=== PATIENT | female | born 1950 | race Caucasian/White ===

== ENCOUNTER 2020-01-13 20:47 | Inpatient (IN) | payer OTHER ==
[~2020-01-13] VITALS: Ht 157.5 cm; Wt 42.6 kg
--- NOTE | 2020-01-13 21:13 | NUR ---
RECEIVED REPORT FROM NATANAEL RAMACHANDRAN AT [facility] REGARDING THIS EVENING'S EVENTS. PER RN, AROUND 1715 THEY RESPONDED TO A CALL FOR A FALL OFF THE TOILET IN PT CELL. PT REPORTS THAT SHE HAS NOT HAD A BOWEL MOVEMENT X7 DAYS AND WAS STRAINING HARD ON THE TOILET. PT THEN HAD A NEAR-SYNCOPAL EVENT WHERE SHE FELL OFF THE TOILET WITH NO TRAUMA NOTED. PT ALSO HAD X5 EPISODES OF PROJECTILE VOMITING. PT WAS ADMINISTERED 4MG ZOFRAN IM AND AN IV WAS ESTABLISHED AND A LITER OF NS WAS BOLUSED. PT O2 SAT WAS 95% ON 2L O2 VIA NC AT THE TIME, NATANAEL RAMACHANDRAN THEN REPORTS THAT THE PATIENT DESATTED DOWN TO 75% AFTER TRYING TO WEAN THE PT OFF THE O2. PT WAS PLACED ON HIGH FLOW AND CALLED 911. PT WAS ABLE TO PASS A SMALL AMOUNT OF STOOL THIS EVENING PER RN. PT ONLY MEDICAL HISTORY IS ANXIETY AND ASTHMA.
[2020-01-13 22:21] VITALS: Ht 157.5 cm; Wt 42.6 kg
--- NOTE | 2020-01-13 22:29 | NUR ---
PATIENT BROUGHT IN TO ED ROOM T2A FROM [facility] FOR C/O NEAR SYNCOPAL EPISODE OCCURRING AT 5 PM WHILE PATIENT WAS HAVING A BM. PATIENT WAS EXPERIENCING DIFFICULTY BREATHING AND VOMITING X1 WHEN [facility] ARRIVED ON SCENE. PATIENT HAD INDICATED THAT SHE WAS ALERT AND ORIENTED X4. RESPIRATION EVEN AND UNLABORED. PATIENT DENIED PAIN, DISCOMFORT, AND DIZZINESS. PATIENT HAS PMH ASTHMA, ANXIETY, SCHIZOPHRENIA, AND BIPOLAR DISORDER. REPORT RECEIVED FROM [facility] REPAIR SERVICER. AT BEDSIDE TO [facility] PATIENT AND EKG OBTAINED BY WOOD POLISHER AT THE TIME. WILL CONTINUE TO MONITOR. CALL LIGHT WITHIN REACH.
[2020-01-13 22:50] LABS: BASOPHIL % 0.3 % (0-2); PLATELET COUNT 286 x10^3mcL (130-400); RED CELL DISTRIBUTION WIDTH 12.9 % (11.5-14.5)
[2020-01-13 23:05] LABS: ALBUMIN 3.4 g/dL (3.4-5.0); ALKALINE PHOSPHATASE 62 U/L (46-116); ALT/SGPT 27 U/L (14-59); AST/SGOT 36 U/L (15-37); CALCIUM 8.4 mg/dL (8.5-10.1); CARBON DIOXIDE 19.8 mmol/L (21-32); CHLORIDE SERUM 87 mmol/L (98-107); CREATININE SERUM 0.7 mg/dL (0.6-1.0); GFR1 > 60 mL/min; GLUCOSE SERUM 119 mg/dL (74-106); POTASSIUM SERUM 3.9 mmol/L (3.5-5.1)
[2020-01-13 23:06] LABS: TOTAL PROTEIN, SERUM 6.1 g/dL (6.4-8.2)
[2020-01-13 23:07] LABS: SODIUM SERUM 119 mmol/L (136-145)
[2020-01-14 01:44] LABS: microscopic required? YES; urine erythrocyte TRACE (NEGATIVE)
[2020-01-14] MEDS ORDERED: NATURE'S BLEND500 MG PO (01:55)
[2020-01-14] MEDS ORDERED: ASMANEX TW110 MCG/Ac IH (01:55)
[2020-01-14] MEDS ORDERED: RISPERDAL1 M1 PO (01:56)
[2020-01-14] MEDS ORDERED: DITROPAN XL5 MG PO (01:56)
[2020-01-14] MEDS ORDERED: XOPENEX3 ML NEB (01:57)
--- NOTE | 2020-01-14 01:58 | NUR ---
PATIENT RESTING AT THE MOMENT. PATIENT VOIDS 3 TIMES. CLEAR, YELLOW URINE NOTED. TOTAL AMOUNT IS 400 ML.
--- NOTE | 2020-01-14 02:28 | NUR ---
REPORT GIVEN TO MADIE HURST FOR PATIENT BEING ADMITTED TO ROOM 236B VIA EXTENSION 2632. PATIENT MADE AWARE. W DEPUTIES MADE AWARE.
[2020-01-14 05:37] VITALS: BP 133/57
[2020-01-14 06:10] VITALS: BP 115/57
--- NOTE | 2020-01-14 07:15 | NUR ---
RECEIVED BEDSIDE REPORT FROM NIGHT RN. PT IN BED RESTING. NO ACUTE DISTRESS. PT AOX4 ABLE TO MAKE NEEDS KNOWN. RR EVEN AND UNLABORED ON 2L NC. O2 SAT 94%. PT ON TELE#2. CIM WITH GUARDS AT BEDSIDE. IV IN RAC CDI WITH NO REDNESS OR SWELLING. CALL LIGHT WITHIN REACH. WILL CONTINUE TO MONITOR.
[2020-01-14 14:11] VITALS: BP 116/52
[2020-01-14 16:30] VITALS: BP 107/60
[2020-01-14 19:02] LABS: CALCIUM 9.2 mg/dL (8.5-10.1); CARBON DIOXIDE 24.4 mmol/L (21-32); CHLORIDE SERUM 100 mmol/L (98-107); CREATININE SERUM 0.8 mg/dL (0.6-1.0); GFR1 > 60 mL/min; GLUCOSE SERUM 101 mg/dL (74-106); POTASSIUM SERUM 4.3 mmol/L (3.5-5.1); SODIUM SERUM 134 mmol/L (136-145)
[2020-01-14 19:30] VITALS: BP 118/59
--- NOTE | 2020-01-14 19:41 | NUR ---
PT IN BED RESTING. NO ACUTE DISTRESS. PT ON 1L NC. RR EVEN AND UNLABORED. ALL NEEDS MEET AT THIS TIME. WILL CONTINUE TO MONITOR.
--- NOTE | 2020-01-14 22:13 | NUR ---
RECEICED PT IN BED AAOX4 ON 2L N/C NO RESP DISTRESS NOTED , PIV INFILTRATED 22B INSERTED TO LEFT F.ARM . PT TOLERATED WELL .
--- NOTE | 2020-01-15 02:16 | NUR ---
ASSISTED PT TO THE BSC WITH FWW, GAIT STEADY , PT VOIDED WELL . PIV INTACT INFUSING WELL . TELE NSR .
[2020-01-15 04:58] VITALS: BP 110/46
--- NOTE | 2020-01-15 06:30 | NUR ---
NO CHANGES OF CONDITION NOTED , ALL DUE MEDS GIVEN NO REACTION NOTED, PIV INTACT INFUSING WELL , TELE NSR.
--- NOTE | 2020-01-15 07:05 | NUR ---
RECEIVED BEDSIDE REPORT FROM NIGHT RN. PT ASLEEP IN BED WITH EYES CLOSED. NO ACUTE DISTRESS. RR EVEN AND UNLABORED ON 1L NC. HOB BED ELVATED. PT CIW WITH GUARD AT ROOM SIDE. CALL LIGHT WITHIN REACH. BED LOCKED IN LOWEST POSITION. WILL CONTINUE TO MONITOR.
[2020-01-15 07:29] LABS: BASOPHIL % 0.4 % (0-2); PLATELET COUNT 279 x10^3mcL (130-400); RED CELL DISTRIBUTION WIDTH 13.7 % (11.5-14.5)
[2020-01-15 08:07] LABS: ALKALINE PHOSPHATASE 56 U/L (46-116); ALT/SGPT 27 U/L (14-59); AST/SGOT 25 U/L (15-37); BILIRUBIN TOTAL 0.26 mg/dL (0.20-1.00); CALCIUM 8.6 mg/dL (8.5-10.1); CARBON DIOXIDE 24.6 mmol/L (21-32); CHLORIDE SERUM 106 mmol/L (98-107); CREATININE SERUM 0.8 mg/dL (0.6-1.0); GFR1 > 60 mL/min; GLUCOSE SERUM 90 mg/dL (74-106); MAGNESIUM 2.3 mg/dL (1.8-2.4); PHOSPHOROUS 2.6 mg/dL (2.5-4.9); POTASSIUM SERUM 4.1 mmol/L (3.5-5.1); SODIUM SERUM 139 mmol/L (136-145); T4(THYROXINE) 5.4 ug/dL (4.7-13.3)
[2020-01-15 08:13] LABS: ALBUMIN 2.9 g/dL (3.4-5.0)
[2020-01-15 08:33] LABS: ERYTHROCYTE SED RATE 15 mm/hr (0-30)
[2020-01-15 09:32] VITALS: BP 129/62
[2020-01-15 12:01] VITALS: BP 130/59
--- NOTE | 2020-01-15 15:44 | NUR ---
COVID TEST PREFORMED FOR PLACEMENT BACK TO W
[2020-01-15 17:00] VITALS: BP 114/57
--- NOTE | 2020-01-15 19:10 | NUR ---
RECEIVED REPORT FROM ALVARO RAMACHANDRAN. PT IS AAOX4 AND DENIES CLARK/DIZZINESS. PT ON TELE #13, NSR WITH HR 67. PT DENIES CP/PRESSURE. PT PULSES PALPABLE AND CAP REFILL <3 SEC. PT LUNG SOUNDS DIMINISHED ON RA. PT DENIES SOB OR RESP DISTRESS. PT ABD SOFT/NONDISTENDED WITH ACTIVE BS X4. PT DENIES N/V/C/D. PT VOIDS FREELY WITH BSC. PT HAS GENERALIZED WEAKNESS, BUT IS AMBULATORY. PT HAS REDNESS NOTED TO BUTTOCKS AREA. PT DENIES ANY S/S OF PAIN OR DISCOMFORT AT THIS TIME. PT IV PATENT/INTACT. ALL NEEDS MET. CALL LIGHT WITHIN REACH. BED IN LOWEST POSITION. SIDE RAILS X2 UP. GUARDS AT BEDSIDE. WILL CONTINUE TO MONITOR.
--- NOTE | 2020-01-15 19:17 | NUR ---
PT SITTING UP IN BED. NO ACUTE DISTRESS. RR EVEN AND UNLABORED ON RA. NO CO PAIN AT THIS TIME. BSC AT BEDSIDE. GUARD AT DOOR. ALL NEEDS MEET AT THIS TIME. ENDORSED CARE TO NIGHT RN.
[2020-01-15 20:40] VITALS: BP 150/62
--- NOTE | 2020-01-16 01:00 | NUR ---
PT RESTING COMFORTABLY IN BED WITH EYES CLOSED, EASILY AROUABLE. NO ACUTE DISTRESS NOTED. ALL NEEDS MET. GUARDS AT BEDSIDE. WILL CONTINUE TO MONITOR.
[2020-01-16 04:06] LABS: RAPID PLASMA REAGIN Non Reactive (Non Reactive)
[2020-01-16 05:24] VITALS: BP 143/65
--- NOTE | 2020-01-16 05:31 | NUR ---
PT RESTED COMFORTABLY WITH EYES CLOSED, EASILY AROUSABLE. NO ACUTE DISTRESS NOTED DURING THE NIGHT. PT BREATHING E/U ON RA. ALL NEEDS MET. CALL LIGHT WITHIN REACH. BED IN LOWEST POSITION. SIDE RAILS X2 UP. GUARDS AT BEDSIDE. WILL ENDORSE TO DAY SHIFT NURSE.
[2020-01-16 07:30] LABS: BASOPHIL % 0.5 % (0-2); PLATELET COUNT 301 x10^3mcL (130-400); RED CELL DISTRIBUTION WIDTH 13.8 % (11.5-14.5)
--- NOTE | 2020-01-16 07:46 | NUR ---
RECIEVED REPORT FROM [facility] NURSE. PATIENT IS CURRENTLY AWAKE ALERT AND ORIENTED X 4. PATIENT IS ON STANDAARD PRECAUTIONS. IV TO THE LEFT FOREARM CURRENTLY SALINE LOCKED. PATIENT RECIEVES ANITBIOTICS THERAPY. BESIDE COMMODE IN ROOM. LING SOUNDS DIMINISHED ON ROOM AIR, OXYGEN SATURATION AT 96%. NO REPORT OF DIZZINESS AT THIS TIME. NO REPORT OF PAIN AT THIS TIME. SODIUM LEVEL WNL. WILL CONTINUE TO PROVIDE CARE FOR PATIENT.
[2020-01-16 08:33] VITALS: BP 144/65
[2020-01-16 09:05] LABS: RHEUMATOID ARTHRITIS FACTOR <10.0 IU/mL (0.0-13.9)
[2020-01-16 13:00] VITALS: BP 134/53
--- NOTE | 2020-01-16 15:34 | NUR ---
1. Continue regular diet as tolerate
--- NOTE | 2020-01-16 15:34 | NUR ---
Initial Nutrition Assessment: 236B ELY WAITE 69F HR Nursing trigger: N/V/D > 3d, unintentional weight loss > 10lbs Dx: Syncope, hyponatremia, SOB, sepsis PMHx: Bipolar, schizophrenia PSHx: none noted Labs: (01/15) WBC 12.3H Meds: Levaquin PRN meds: Ambien, Ativan, morphine sulfate, norco, Phenergan, Tylenol, Ventolin Diet: Regular PO intake since admission: 50-85% x 4 meals with average PO intake of 74% Ht: 157.48cm/62in Wt: 42.638kg/93.8lbs BMI: 17.2 Bed scale: 45.5kg/101.1lbs IBW: 50kg/110lbs %IBW: 85.3% UBW: 95lbs per pt Age: 69 Food Allergies: NFKA per pt Edema: no edema noted Last BM: 01/13 Skin: redness noted to buttocks area Troy: 18 Per H and P (01/13), Pt is a 69 yo female h/o psych d/o schizophrenia being worked up for parkinson, [facility] resident. She c/o increased sob and had a fainting spill while using toilet. She was found next to the toilet. She than was taken to the ed. Multiple work ups done, she also had leukocytosis, hyponatremia and was admitted for further treatments. Pt was admitted with dx: Syncope, Hyponatremia, Schizophrenia, other psych d/o, leukocytosis, r/o sepsis, SOB/RAD RD Note (01/15) Pt was seen lying in bed during bedside visit. Pt was accompanied by two officers per [facility] policy. Pt denied chewing/swallowing difficulty, and recent weight changes. However, pt reported her weight was 95lbs last time she checked. Per pt, she had good appetite, and RN also reported that pt had 100% of her breakfast today. Problem with: N/V/D/C: constipation, pt last BM 01/13 noted Problems with: Chewing: Swallowing: none noted Current appetite: good Recent wt change: pt did not remember %wt change: 1% per usual weight provided by pt Height: 5'2" Vitamin/Supplement use: n/a Special diet at home: n/a Physical activity: none per pt Nutrition education given (specify specific nutrition education and handout given): not given at this time Food-drug interactions? Education given? n/a Estimated Nutritional Needs Based on current body weight (43kg) Energy: 9779-8601 kcal/day (30-35 kcal/kg for underweight) Protein: 51-64 g/day (1.2-1.5 g/kg for underweight and lean body mass preservation) Fluid: 2076-3825 mL/day (1 mL/kcal) Nutrition Diagnosis: 1. Underweight r/t pathophysiological cause a/e/b pt BMI =17.2. Intervention 1. Continue regular diet as tolerate Monitor/Evaluate Goal: PO intake at least 75% of estimated needs Monitor: PO intake, Labs, GI function, Body weight F/U in 3-5 days as moderate risk
--- NOTE | 2020-01-16 17:24 | NUR ---
PATIENT IS CURRENTLY AWAKE ALERT AND ORIENTED X 4. PATIENT CURRENTLY ON STANDARD PRECAUTIONS. NO EPISODES OF SYNCOPE THROUGHOUT SHIFT. URINE CULTURE RESULTS RECIEVED TODAY AND REVEALED E. COLI, NOTIFIED DR. SMITH- PER DR. SMITH CONTINUE WITH CURRENT THERAPY WHICH IS IV ANITBIOTIC LEVAQUIN. CURRENTLY PENDING NOVEL BLANCO VIRUS TEST RESULTS. SAFETY PRECAUTIONS IN PLACE. CALL LIGHT WITHIN REACH. WILL ENDORSE ALL FURTHER CARE TO NOC NURSE.
--- NOTE | 2020-01-16 19:45 | NUR ---
RECEIVED PT FROM AM NURSE, PT AWAKE AND ALERT IN BED AT THIS TIME. AA/O X 4 , ABLE TO MAKE NEEDS KNOWN, CLEAR SPEECH, NO FACIAL DROOP, DENIES HEADACHE/ DIZZINESS. MED SURG PT. DENIES CHEST PAIN/ CHEST PRESSURE, PULSES PALPABLE, NO EDEMA, LUNG SOUNDS DIMINISHED BLL, PT ON ROOM AIR, RESPIRATIONS E/U, DENIES SOB. ACTIVE BS X 4 QUADS/ ABD SOFT AND NON DISTENDED, DENIES N/V/D. DENIES PAIN, ERYTHEMA TO BUTTOCKS. IV TO LFA INTACT, FLUSHES WELL, SL, NO ERYTHEMA, NO INFILTRATION. CIW PT, GUARD OUTSIDE DOOR AT TALL TIME, SHACKLE TO LEFT ANKLE INTACT, CIRCULATION WNL/ SKIN INTACT. ALL NEEDS ADDRESS. CALL BUTTON WITHIN REACH, WILL CONTINUE TO MONITOR.
[2020-01-16 20:19] VITALS: BP 125/84
--- NOTE | 2020-01-17 00:15 | NUR ---
PT IN BED RESTING WITH EYES CLOSED, NO SIGNS OR SYMPTOMS OF PAIN OR DISCOMFORT. RESPIRATIONS EVEN AND UNLABORED, NO RESPIRATORY DISTRESS AT THIS TIME. NO ACUTE DISTRESS AT THIS TIME. CIW PT, GUARD OUTSIDE DOOR AT ALL TIMES. ANKLE SHACKLE IN PLACE, SKIN INTACT, CIRCULATION WNL. CALL BUTTON WITHIN REACH, WILL CONTINUE TO MONITOR.
[2020-01-17 06:23] VITALS: BP 134/68
[2020-01-17 06:53] LABS: BASOPHIL % 0.5 % (0-2); PLATELET COUNT 313 x10^3mcL (130-400); RED CELL DISTRIBUTION WIDTH 13.6 % (11.5-14.5)
--- NOTE | 2020-01-17 07:15 | NUR ---
RECEIVED PT IN BED AWAKE, ALERT, VERBALLY RESPONSIVE. CIW PATIENT, CIW STAFF PRESENT. ON ROOM AIR, DENIES SOB, NO ACUTE RESPIRATORY DISTRESS. IV SITE TO LFA SALINE LOCK. DENIES PAIN OR DISCOMFORT AT THIS TIME. BED IN LOWEST POSITION. CALL LIGHT WITHIN REACH. WILL CONTINUE TO MONITOR.
[2020-01-17 07:16] LABS: ALKALINE PHOSPHATASE 67 U/L (46-116); ALT/SGPT 32 U/L (14-59); AST/SGOT 32 U/L (15-37); BILIRUBIN TOTAL 0.3 mg/dL (0.20-1.00); CALCIUM 9.4 mg/dL (8.5-10.1); CARBON DIOXIDE 25.1 mmol/L (21-32); CHLORIDE SERUM 103 mmol/L (98-107); CREATININE SERUM 0.7 mg/dL (0.6-1.0); GFR1 > 60 mL/min; GLUCOSE SERUM 84 mg/dL (74-106); POTASSIUM SERUM 4.4 mmol/L (3.5-5.1); SODIUM SERUM 138 mmol/L (136-145); TOTAL PROTEIN, SERUM 6.8 g/dL (6.4-8.2)
[2020-01-17 07:18] LABS: ALBUMIN 3.2 g/dL (3.4-5.0)
--- NOTE | 2020-01-17 07:50 | NUR ---
PT SLEPT IN INTERVALS THROUGHOUT THE NIGHT, BUT EASILY AROUSABLE. NO ACUTE CHANGES OVERNIGHT. CHEST PAIN 4/10 REPORTED, NON RADIATING. PRN NORCO GIVEN PER ORDER. CIW PT, GUARDS OUTSIDE DOOR AT ALL TIMES, SKIN WNL/ CIRCULATION WNL. ALL CONCERNS ADDRESSED, CALL LIGHT WITHIN REACH, CARE ENDORSED TO AM NURSE.
[2020-01-17 08:38] VITALS: BP 134/54
--- NOTE | 2020-01-17 15:51 | NUR ---
RECEIVED NEGATIVE COVID19 RESULT FROM LAB. AJ SANDRA MADE AWARE, PER DR.LIN CORADO TO D/C TOMORROW.
[2020-01-17 16:55] VITALS: BP 140/89
--- NOTE | 2020-01-17 18:05 | NUR ---
PT AWAKE IN BED, NO QUESTIONS OR CONCERN AT THIS TIME. CIW PATIENT WITH STAFF PRESENT. IV SITE TO LFA, INTACT AND PATENT. NO ACUTE RESPIRATORY DISTRESS. DENIES PAIN OR DISCOMFORT. BED IN LOWEST POSITION. CALL LIGHT WITHIN REACH. WILL ENDORSE CARE TO INCOMING NURSE
--- NOTE | 2020-01-17 19:15 | NUR ---
RECEIVED PT FROM AM NURSE, PT AWAKE IN BED WATCHING TELEVISION. AA/O X 4, ABLE TO MAKE NEEDS KNOWN, CLEAR SPEECH, DENIES HEADACHE/ DIZZINESS. MED SURG PT, DENIES CHEST PAIN/ CHEST PRESSURE. PULSES PALPABLE NO EDEMA. RESPIRATIONS EVENE AND UNLABORED ON ROOM AIR, NO SOB. ACTIVE BS X 4 QUADS. ABD SOFT AND NON DISTENDED. DENIES N/V/D. VOIDS USING BSC. GENERALIZED WEAKNESS. IS SITE TO LFA INTACT, NO ERYTHEMA, NO INFILTRATION. DENIES PAIN AT THIS TIME. PT IS CIW, GUARD OUTSIDE DOOR AT ALL TIMES. SHACKLE TO ANKLE, CIRCULATION WNL, SKIN INTACT. ALL CONCERNS MET, CALL BUTTON WITHIN RE, WILL CONTINUE TO MONITOR.
[2020-01-17 21:36] VITALS: BP 141/54
--- NOTE | 2020-01-17 22:30 | NUR ---
IV REMOVED BY PT, CATHETER INTACT. NEW IV INSERTED TO RFA, 22 GAUGE, 1 ATTEMPT. GOOD BLOOD RETURN, SECURED. WILL CONTINUE TO MONITOR.
--- NOTE | 2020-01-18 02:29 | NUR ---
PT RESTING IN BED, RESPIRATIONS E/U. NO S/S OF PAIN. CIM PT WITH GUARD OUTSIDE DOOR. CALL LIGHT WITHIN REACH, WILL CONTINUE TO MONITOR.
[2020-01-18 05:31] VITALS: BP 136/69
--- NOTE | 2020-01-18 05:47 | NUR ---
PT SLEPT IN INTERVALS THROUGHOUT THE NIGHT, BUT EASILY AROUSABLE. RESPIRATIONS EVEN AND UNLABORED ON ROOM AIR. DENIES PAIN AT THIS TIME. IV SITE TO RFA INTACT AND FLUSHING WELL, NO INFILTRATION. NO ACUTE CHANGES DURING THE NIGHT, CALL LIGHT WITHIN REACH, WILL ENDORSE CARE TO AM NURSE.
[2020-01-18 07:03] LABS: CALCIUM 9.4 mg/dL (8.5-10.1); CARBON DIOXIDE 29.1 mmol/L (21-32); CHLORIDE SERUM 102 mmol/L (98-107); CREATININE SERUM 0.8 mg/dL (0.6-1.0); GFR1 > 60 mL/min; GLUCOSE SERUM 89 mg/dL (74-106); POTASSIUM SERUM 4.1 mmol/L (3.5-5.1); SODIUM SERUM 137 mmol/L (136-145)
[2020-01-18 07:18] LABS: BASOPHIL % 0.5 % (0-2); PLATELET COUNT 328 x10^3mcL (130-400); RED CELL DISTRIBUTION WIDTH 13.7 % (11.5-14.5)
--- NOTE | 2020-01-18 08:56 | NUR ---
AT 0720 - RECEIVED PATIENT FROM NIGHT NURSE. SLEEPING. RESPIRATIONS REGULAR. CIGAR BRANDER OUTSIDE ROOM; PT IS FROM [facility].
[2020-01-18 09:23] VITALS: BP 132/67
--- NOTE | 2020-01-18 11:34 | NUR ---
AT 0900 - PATIENT AWAKE, ALERT AND ORIENTED. SITTING UP IN BED. USES BEDSIDE COMODE FOR TOILET NEEDS. DENIES ANY DYSUREA OR BURNING ON MICTURATION. TODAY'S DOSE OF LEVAQUIN NOW IN PROGRESS. PATIENT REPORTS PERSISTANT LEFT CHEST PRESSURE-LIKE PAIN AT 1020 - SEEN BY DR VILLARREAL. CHEST X-RAY ORDERED. AT 1130 - RESTING QUIETLY. CHEST X-RAY HAS BEEN DONE.
--- NOTE | 2020-01-18 12:45 | NUR ---
SEEN BY DR SMITH. HE VIEWED CHEST X-RAY RESULTS. RECEIVED DISCHARGE ORDERS.
[2020-01-18 12:47] VITALS: BP 132/67
--- NOTE | 2020-01-18 13:31 | NUR ---
DISCHARGE PACKAGE GIVEN TO INVENTORY CONTROL MANAGER. PATIENT AWARE OF BEING DISCHARGED BACK TO [facility].
--- NOTE | 2020-01-18 14:01 | NUR ---
IV CATHETER REMOVED INTACT. AWAITING TRANSPORT BACK TO [facility].
--- NOTE | 2020-01-18 15:56 | NUR ---
DISCHARGED BACK TO [facility]
== END 2020-01-18 15:55 | disposition other institution (70) | DRG 640 ==
LOC: ED 20:47 → DU 01-14 00:18 → MU 01-14 03:19 → DU 01-14 05:46 → MU 01-16 12:23
PROVIDERS: Emergency Medicine; Internal Medicine; ADMIT Internal Medicine; ATTEND Internal Medicine
DX: E87.1 Hypo-osmolality and hyponatremia (principal); J96.01 Acute respiratory failure with hypoxia; N39.0 Urinary tract infection, site not specified; Z20.828 Contact with and (suspected) exposure to other viral communicable diseases; F20.9 Schizophrenia, unspecified; F41.9 Anxiety disorder, unspecified; D72.829 Elevated white blood cell count, unspecified; E86.0 Dehydration; R55 Syncope and collapse
CPT/HCPCS: 83880; 86431; G0378; J0696; J1956; J7030; J7040; J7060; Q0092; U0003-CS